=== PATIENT | male | born 1945 | race Caucasian/White ===

== ENCOUNTER → 2018-07-19 | Outpatient (CLI) | payer BC ==
--- NOTE | 2018-07-19 16:07 | ECHO ---
[email or web address] [address] Main: [phone] Fax: Transthoracic Echocardiogram Name: ARLENE CASTILLO MR#: [id number] Study Date: 07/19/2018 Study Time: 01:51 PM Date of : 1945 Age: 73 year(s) Height: 177.8 cm (70 in.) Weight: 74.39 kg (164 lb.) BSA: 1.92 m2 Gender: Male Examination: Echo Indication: HTN/Dyspnea/Hyperlipidemia Image Quality: Contrast: Requested by: Armando Kimbrough BP: / Heart Rate: Rhythm: Indication: HTN/Dyspnea/Hyperlipidemia Procedure Staff Miscellaneous Machine Operator: Susannah Ronquillo RDCS Reading Physician: Armando Kimbrough MD Requesting Provider: Conclusions: Normal size left ventricle. Normal global systolic LV function. The ejection fraction is estimated to be 65-70 %. Normal size right ventricle. The pulmonary artery pressure is normal. Mildly dilated ascending aorta measuring 4.2 cm. Measurements: Chambers Valvular Assessment AV/MV Valvular Assessment TV/PV Normal Normal Normal Name Value Range Name Value Range Name Value Range Ao Raegan (MM): 3.6 cm (2.2 cm-3.7 AV Vmax: 1.14 m/s (1 m/s-1.7 TR Vmax: 2.13 mm/s ( - ) cm) m/s) TR PGmax: 18 mmHg ( - ) IVSd (2D): 0.8 cm (0.6 cm-1.1 AV meanP mmHg ( - ) syst. PAP: 23 mmHg ( - ) cm) MV E Vmax: 0.91 m/s ( - ) LVDd (2D): 4.8 cm (4.2 cm-5.9 MV A Vmax: 0.74 m/s ( - ) cm) MV E/A: 1.23 ( - ) LVDs (2D): 2.8 cm (2.1 cm-4 cm) LVPWd (2D): 0.9 cm (0.6 cm-1 cm) LVEF (BP): 73 % (>=55 %) EF Range: 65-70 % Continued Measurements: Chambers Valvular Assessment AV/MV Valvular Assessment TV/PV Name Value Name Value Name Value LADs: 3.8 cm MV E' Septal: 0.08 m/s CVP (est.): 5 mmHg LADs Lon.6 cm MV E/E' Septal: 11.10 Patient: ARLENE CASTILLO Study Date: 07/19/2018 Page 1 of 2 01:51 PM LA Area: 20.3 cm2 MV E/E' Lateral: 12.70 LA Volume: 61 ml LA Volume Index: 31.8 ml/m2 Additional Vessels Name Value Ao Ascendin.2 cm Findings: Left Ventricle: Normal size left ventricle. No LV hypertrophy. Normal global systolic LV function. The ejection fraction is estimated to be 65-70 %. No regional wall motion abnormality. Normal diastolic LV function. Right Ventricle: Normal size right ventricle. Normal RV function. Left Atrium: The left atrium is normal in size. Right Atrium: The right atrium is normal in size. Mitral Valve: The mitral valve is normal in appearance and function. Mild mitral valve regurgitation is present. Aortic Valve: The aortic valve is normal in appearance and function. The aortic valve is tri-leaflet. Tricuspid Valve: The tricuspid valve is normal in appearance and function. Mild tricuspid regurgitation is present. The pulmonary artery pressure is normal. RVSP is 23mmHG.. Pulmonic Valve: The pulmonic valve is normal in appearance and function. Aorta: The aorta is normal. Mildly dilated ascending aorta measuring 4.2 cm. Pericardium: No pericardial effusion. (No Signature Object) Patient: ARLENE CASTILLO Study Date: 07/19/2018 Page 2 of 2 01:51 PM [id number]
== END ==
LOC: FCP 13:41
PROVIDERS: ATTEND Internal Medicine Cardiovascular Disease
DX: I77.9 Disorder of arteries and arterioles, unspecified (principal); E78.5 Hyperlipidemia, unspecified; I10 Essential (primary) hypertension

== ENCOUNTER → 2018-11-20 | Outpatient (CLI) | payer BC | LOC: BMCIMAGING 11:12 | PROVIDERS: ATTEND Internal Medicine | DX: R05 Cough (principal) ==